=== PATIENT | female | born 1955 | race Caucasian/White ===

== ENCOUNTER 2020-01-21 13:16 | Emergency (ER) | payer MEDICARE ==
[~2020-01-21] VITALS: Ht 154.9 cm; Wt 72.6 kg
[2020-01-21 13:16] VITALS: BP_SYST 148
[2020-01-21 14:06] VITALS: BP_SYST 163
== END 2020-01-21 14:06 | disposition home or self-care (01) ==
LOC: SED 13:16
DX: F41.9 Anxiety disorder, unspecified (principal); I10 Essential (primary) hypertension; Z90.49 Acquired absence of other specified parts of digestive tract
CPT/HCPCS: 99283